=== PATIENT | female | born 1990 | race Caucasian/White ===

== ENCOUNTER 2023-08-13 04:28 | Emergency (ER) | payer OTHER ==
[~2023-08-13] VITALS: Ht 162.6 cm; Wt 57.2 kg
[2023-08-13 04:30] VITALS: BP 145/93; PULSE 118; RESP 17; TEMP 97.9; O2SAT 95
== END 2023-08-13 04:45 ==
LOC: MED 04:28
DX: S60.312A Abrasion of left thumb, initial encounter (principal); S60.311A Abrasion of right thumb, initial encounter; X58.XXXA Exposure to other specified factors, initial encounter; Y93.9 Activity, unspecified; Y92.89 Other specified places as the place of occurrence of the external cause; Y99.8 Other external cause status
CPT/HCPCS: 99283